=== PATIENT | male | born 1955 | race Caucasian/White ===

== ENCOUNTER 2017-05-14 08:16 | Emergency (ER) | payer OTHER ==
[2017-05-14 08:21] VITALS: BP 114/69; PULSE 71; RESP 16; TEMP 99.7; O2SAT 97
--- NOTE | 2017-05-14 09:17 | EDPHY ---
H & P Stated Complaint: flu like symptoms/runny nose fever Time Seen by Provider: 05/14/17 09:02 HPI/ROS: CHIEF COMPLAINT: Flu-like symptoms x3 days HISTORY OF PRESENT ILLNESS: 61-year-old immunocompetent male, nonsmoker, with up-to-date influenza vaccination complaining 3 days of flu-like symptoms including sore throat, fever, chills. No cough. No abdominal pain. No nuchal rigidity. No international travel. Normal bowel movements. Normal urinary habits and output. Normal oral intake. PRIMARY CARE PROVIDER:No primary care REVIEW OF SYSTEMS: A ten point review of systems was performed and is negative with the exception of the items mentioned in the HPI PAST MEDICAL & SURGICAL HISTORY: No history of chronic pulmonary disorder/ disease. Up-to-date influenza vaccination SOCIAL HISTORY: Nonsmoker. . PHYSICAL EXAM (Prior to examination, patient consented to physical exam, hands were washed and my usual and customary physical exam procedures followed) 1) GENERAL: Well-developed, well-nourished, alert and oriented. Appears to be in no acute distress. Smiling answering questions appropriately 2) HEAD: Normocephalic, atraumatic 3) HEENT: Pupils equal, round, reactive to light bilaterally. Sclera anicteric. Nasopharynx, oropharynx, clear, no lesions. No tonsillar enlargement or exudate Ears bilaterally with normal tympanic membranes. 4) NECK: Full range of motion, no meningeal signs. 5) LUNGS: Clear auscultation bilaterally, no wheezes, no rhonchi, no retractions. 6) HEART: Regular rate and rhythm, no murmur, no heave, no gallop. 7) ABDOMEN: No guarding, no rebound, no focal tenderness, negative McBurney's, negative Miranda's, negative Rovsing's, negative peritoneal sign, 8) MUSCULOSKELETAL: Moving all extremities, no focal areas of tenderness, no obvious trauma. No peripheral edema or discoloration. 9) BACK: No CVA tenderness, no midline vertebral tenderness, no fluctuance, no step-off, no obvious trauma, no visual or palpable abnormality. 10) SKIN: No rash, no petechiae. 11) Psychiatric: Patient is oriented X 3, there is no agitation. DIFFERENTIAL DIAGNOSIS: In no particular order including but not limited to pneumonia, bronchitis, influenza - Personal History Current Tetanus/Diphtheria Vaccine: Yes - Medical/Surgical History Hx Asthma: No Hx Chronic Respiratory Disease: No Hx Diabetes: No Hx Cardiac Disease: No Hx Renal Disease: No Hx Cirrhosis: No Hx Alcoholism: No Hx HIV/AIDS: No Hx Splenectomy or Spleen Trauma: No Other PMH: denies - Social History Smoking Status: Never smoked Constitutional: Initial Vital Signs Temperature (C) 37.6 C 05/14/17 08:19 Heart Rate 71 05/14/17 08:19 Respiratory Rate 16 05/14/17 08:19 Blood Pressure 114/69 05/14/17 08:19 O2 Sat (%) 97 05/14/17 08:19 O2 Delivery Mode Room Air Allergies/Adverse Reactions: No Known Allergies Allergy (Unverified 05/14/17 08:19) Home Medications: Medication Instructions Recorded NK [No Known Home Meds] 05/14/17 Medical Decision Making ED Course/Re-evaluation: 9:13 a.m.: Patient is breathing comfortably, not hypoxic, no immunocompromised conditions. We discussed his positive influenza B test. He has been symptomatic for 3 days. We discussed supportive care. I do not think that hospitalization, chest x-ray, antiviral therapy currently indicated. He feels comfortable with this plan. All questions and concerns addressed by myself. Patient also has no primary care provider. I recommended establishing primary care and provided this referral information. I have offered prophylactic dose of Tamiflu for his which she accepts. States that his is otherwise healthy, no history of chronic lung disease or immunosuppressed/compromised condition, she has no known drug allergies. This was a hand written prescription for "Mariya Driver" [birth year]. Care of patient under supervision of secondary supervising physician Dr Nuno with whom I discussed care . - Data Points Laboratory Results: 05/14/17 08:23 Nasal Influenza A PCR NEGATIVE FOR FLU A (NEGATIVE) Nasal Influenza B PCR FLU B DETECTED H (NEGATIVE) RSV (PCR) NEGATIVE FOR RSV (NEGATIVE) Departure - Departure Disposition: Home, Routine, Self-Care Clinical Impression: Influenza B Condition: Good Instructions: Influenza (ED) Additional Instructions: Return to the emergency department immediately for change in breathing habits, change in voice, change in swallowing habits, change in mental status, or any other symptoms that concern you. Adult Pain & Fever Control: We recommend Acetaminophen (Tylenol) and Ibuprofen (Motrin,Advil) for pain and fever control. When fever is high or pain severe, both drugs can be used at the same time, but at different intervals. Please note the time differences. Your dose is: Acetaminophen 1000mg every 4 to 6 hours Ibuprofen 800mg every 6 hours with food OR Note: do not take Acetaminophen with Hydrocodone (Vicodin, Lortab) or Oycodone (Percocet). These medications also contain Acetaminophen. No more than 3000mg of Acetaminophen should be taken in 24 hours (for an adult). Referrals: Gloria Maza MD [Medical Doctor] - 2-3 days, if not improved
== END 2017-05-14 09:17 | disposition home or self-care (01) ==
DX: J10.1 Influenza due to other identified influenza virus with other respiratory manifestations (principal)